=== PATIENT | female | born 1970 | race Caucasian/White ===

== ENCOUNTER 2024-11-30 15:55 | Emergency (ER) | payer OTHER, SELFPAY ==
--- NOTE | ~2024-11-30 | XR_ITS ---
CLINICAL HISTORY: pain 3 view, pelvis and right hip Comparison: None Findings: No acute fracture or dislocation. Mild arthritic changes in the bilateral acetabulofemoral joints. The soft tissues are unremarkable. IMPRESSION: No acute fracture or dislocation. This document has been electronically signed by: Nu Burns DO on 11/30/2024 17:14:40
[2024-11-30 16:11] VITALS: BP 136/65; PULSE 100; RESP 19; TEMP 36.6; O2SAT 97; BMI 29.1
--- NOTE | 2024-11-30 16:12 | ED_ITS ---
HPI - Extremity Problem General Chief complaint: Extremity Injury, Lower Stated complaint: right hip pain Time Seen by Provider: 11/30/24 17:31 Source: patient, RN notes reviewed and old records reviewed Mode of arrival: ambulatory History of Present Illness ED Provider: Myrtle Swain PA-C HPI Narrative: 54-year-old female with a past medical history of arthritis, presenting to the ED complaining of atraumatic right hip pain x few days. Reports pain worse with movement and ambulation with radiation to groin/down RLE. Has been taking Motrin at home without relief. Denies fever, chills, trauma/fall, numbness/ tingling, weakness, incontinence/retention, abdominal pain Related Data Previous Rx's ?Medication ?Instructions ?Recorded acetaminophen 500 mg tablet 500 mg PO Q6H PRN fever or pain 11/30/24 (Tylenol Extra Strength) #14 tabs cyclobenzaprine 5 mg tablet 5 mg PO Q8H PRN pain (scale score 11/30/24 7-10) 5 days #14 tabs lidocaine 5 % topical patch 1 patch topical DAILY PRN pain #30 11/30/24 (Lidoderm) ea naproxen 500 mg tablet 500 mg PO BID PRN pain 10 days #20 11/30/24 tabs Allergies Allergy/AdvReac Type Severity Reaction Status Date / Time propofol Allergy Hives Verified 11/30/24 16:13 Review of Systems Review of Systems: Yes all other systems are reviewed and are negative Constitutional: Constitutional: Reports as per [facility] Past Medical History Attestation statement: The following information was validated with the patient. Source: old records reviewed Social History Social History Advance Directives: No Advance Directives Information Provided: Yes Do you have a plan to hurt others: No Plan Physical Exam Vital Signs: Vital Signs: Last Vital Signs Temp 98 F 11/30/24 17:51 Pulse 100 11/30/24 17:51 Resp 19 11/30/24 17:51 BP 136/65 11/30/24 17:51 Pulse Ox 97 11/30/24 17:51 O2 Del Method Room Air 11/30/24 17:51 BMI result Body Mass Index 29.1 Const: General: cooperative, healthy appearing and no acute distress Orientation/consciousness: patient oriented x3 Limitations: no limitations HEENT: Head: Yes normal to inspection and Yes atraumatic Ears: hearing grossly normal bilaterally General nose exam: Normal external nose present Face and sinus: Yes normal facial exam Eyes: General: appearance normal, both eyes and all related structures EOM: EOMs intact bilaterally Neck: Neck: Yes normal visual inspection and Yes no meningeal signs Resp: Effort & Inspection: normal respiratory effort and no respiratory distress Cardio: Rate: regular rate GI: Inspection: Yes normal to inspection Palpation (GI): Soft to palpation, nontender, no guarding and not rigid Back/Spine/Pelvis: Other: No midline cervical/thoracic/lumbar spinous tenderness/step-off or deformity. + reproducible right buttock MSK tenderness to palpation. No rash or erythema. No ecchymosis. Skin: Rashes: no rashes Wounds: no wounds Neuro: Other: Strength intact throughout. No saddle anesthesia. Sensation intact to light touch. Neurovascular intact distally General: patient oriented x3, gait normal, tone normal, moves all extremities, no meningeal signs and no focal motor deficits Cranial nerves: Yes CN's II-XII intact bilaterally Gait exam (Neuro): Normal gait present Extrem: Other: No appreciable deformity. Pain elicited with hip rotation. Mild tenderness to right groin. No palpable hernia. General: Yes normal to inspection Course Course Course Narrative: 54 yo female with hx of arthritis and prior cortisone shot in R hip she noted at work yesterday severe R hip pain. She denies trauma just states the pain is worse with walking. She has no rash, no fevers, no new change in pattern of exercise but could possibly have been caused by twisting to get out of car. R hip xray ordered suspect MSK pain. this is a RAPID medical screening exam the rest of the history and physical exam is to be done by the main provider. XR hip RT w PEL1V IMPRESSION: No acute fracture or dislocation. Results discussed with patient including worrisome signs and symptoms and strict return precautions, and when to return to the emergency department. They verbalized understanding and feel safe for discharge at this time. Medical Decision Making Medical Decision Making MDM Narrative: 54-year-old female with a past medical history of arthritis, presenting to the ED complaining of atraumatic right hip pain x few days. On exam vital signs stable, NAD, nontoxic appearing, physical exam as noted above. No midline spinous tenderness throughout or red flag symptoms. Ambulating with steady gait with pain. Concern for MSK pain/strain vs spasming vs sciatica. Lower suspicion for fracture, cauda equina, cord compression, hernia, ovarian pathology, appendicitis Plan: X-ray, PCP follow-up Please refer to course for remaining clinical decision making, interpretation of labs/imaging results, and discussions with consultants and/or family members. Differential Diagnosis Differential Diagnoses: The differential diagnosis associated with the presentation includes As above Independent Interpretation I performed an independent interpretation of an: Plain X-Ray Radiology Impression Discussion of test interpretation with radiology: I have reviewed the radiologist's reading. External Record Review External record reviewed: Inpatient record, Office record, Outpatient record, Prior outpatient labs, Prior outpatient radiology, Primary care record and Outside ED record Tests considered The following testing was considered but not selected: As above Prescription Management I considered prescription management with: Pain Medication Chronic Conditions Patient?s care impacted by: Other Attestation Attending Attestation: I was personally present and available for consultation in the ED. I have reviewed everything on the chart that is available and agree with the documentation provided by the CARLOS including discussion about the assessment, treatment plan and discussion. Based on medical record the care appears appropriate. Kev Chong MD [facility] Emergency Medicine Discharge Plan Discharge Clinical Impression: Acute hip pain Patient Disposition: Home, Self-Care Instructions: Hip Pain (ED) Additional Instructions: Your pain is likely musculoskeletal. your x-rays are unremarkable Flexeril is a muscle relaxer, take at night as it makes you drowsy, do not drive, drink alcohol, or operate machinery while taking it Naproxen as an anti-inflammatory / pain medication, take with food Lidoderm patches are numbing patches, apply to painful area In addition take Tylenol at home If symptoms persist or worsen, pain becomes unbearable, you developed urinary retention or incontinence, or weakness return to the ED Prescriptions: New acetaminophen [Tylenol Extra Strength] 500 mg tablet 500 mg PO Q6H PRN (Reason: fever or pain) Qty: 14 0RF lidocaine [Lidoderm] 5 % adhesive patch,medicated 1 patch topical DAILY MDD remove after 12 hours PRN (Reason: pain) Qty: 30 0RF Rx Instructions: leave on most painful area for up to 12 hrs naproxen 500 mg tablet 500 mg PO BID PRN (Reason: pain) 10 Days Qty: 20 0RF cyclobenzaprine 5 mg tablet 5 mg PO Q8H PRN (Reason: pain (scale score 7-10)) 5 Days Qty: 14 0RF Referrals: [facility] [Provider Group] Zonia Perez NP [Primary Care Provider] - Interventions: ED Discharge Assessment Last Done: 11/30/24 17:51 Discharge Date/Time: 11/30/24 17:52 Print Language: Uzbek
[2024-11-30 17:51] VITALS: BP 136/65; PULSE 100; RESP 19; TEMP 36.6; O2SAT 97
== END 2024-11-30 17:52 | disposition home or self-care (01) ==
PROVIDERS: Emergency Provider Emergency Medicine; PCP Nurse Practitioner Family
DX: M25.551 Pain in right hip (principal)
CPT/HCPCS: 73502; 99282; 99283

== ENCOUNTER → 2024-11-30 16:13 | Outpatient (BNV) | payer OTHER, SELFPAY | PROVIDERS: Emergency Provider Emergency Medicine; PCP Nurse Practitioner Family; Visit Provider Radiology Diagnostic Radiology | DX: M25.551 Pain in right hip (principal) | CPT/HCPCS: 73502 ==

== ENCOUNTER 2024-12-22 20:45 | Emergency (ER) | payer OTHER, SELFPAY ==
--- NOTE | ~2024-12-22 | XR_ITS ---
CLINICAL HISTORY: R chest pain 1 view chest x-ray Comparison: None Findings: No consolidation, pneumothorax, or pleural effusion. Opacities of the artifacts accentuated by bilateral implants. Heart size within normal limits for AP technique. No acute fracture. IMPRESSION: No consolidation. This document has been electronically signed by: Jan Hill MD on 12/23/2024 01:40:14
--- NOTE | 2024-12-22 20:47 | ECG_ITS ---
Test Reason : cp Blood Pressure : */* mmHG Vent. Rate : 95 BPM Atrial Rate : 95 BPM P-R Int : 134 ms QRS Dur : 88 ms QT Int : 348 ms P-R-T Axes : 67 64 58 degrees QTcB Int : 437 ms Normal sinus rhythm Possible Left atrial enlargement Nonspecific ST abnormality Abnormal ECG No previous ECGs available Referred By: Christy De Jesus Electronically Signed By: SMITH QUIÑONES
[2024-12-22 21:11] VITALS: BP 126/69; PULSE 100; RESP 16; TEMP 36.6; O2SAT 97; BMI 28.9
[2024-12-22 21:32] LABS: MANUAL DIFF FLAG NO
[2024-12-22 21:33] LABS: Basophils Absolute Auto 0.1 X10*3/uL (0.0-0.2); Basophils Percent Auto 0.6 % (0-2); Eosinophils Absolute Auto 0.8 X10*3/uL (0.0-0.4); Eosinophils Percent Auto 8.1 % (0-4); Hematocrit 35.2 % (37.0-47.0); Hemoglobin 12.1 g/dl (12.0-16.0); Imm Gran Abs Auto 0.03 X10*3/uL (0.00-0.03); Imm Gran Pct Auto 0.3 % (0.0-0.4); Lymphocytes Absolute Auto 3.2 X10*3/uL (1.2-4.9); Lymphocytes Percent Auto 32.3 % (20-40); Mean Corpuscular HGB Conc 34.4 g/dl (31.0-35.0); Mean Corpuscular Volume 87.3 fL (80.0-98.0); Mean Platelet Volume 9.6 fL (9.4-12.3); Monocytes Absolute Auto 0.8 X10*3/uL (0.1-1.2); Monocytes Percent Auto 7.8 % (2-11); Neutrophils Percent Auto 50.9 % (45-73); Platelet Count 272 X10*3/uL (160-400); Red Blood Count 4.03 X10*6/uL (4.20-5.50); Red Cell Distribution Width 13.1 % (11.0-16.0); White Blood Count 9.9 X10*3/uL (4.8-10.8)
[2024-12-22 21:47] LABS: Anion Gap 13 (12-20); Blood Urea Nitrogen 16 mg/dL (9-16); Calcium 8.7 mg/dL (8.4-10.2); Carbon Dioxide 24 mmol/L (22-29); Chloride 107 mmol/L (96-108); Creatinine Clr Calc Pharmacy 81.4; Estimated Glomerular Filt Rate > 60; Glucose Random 111 mg/dL (60-115); Potassium 3.8 mmol/L (3.3-5.1); Sodium 140 mmol/L (135-145)
[2024-12-22 21:57] LABS: Troponin-I High Sensitivity < 2.7 ng/L (<3.5-17.0)
--- NOTE | 2024-12-22 22:37 | ED_ITS ---
HPI - Chest Pain General Chief Complaint: Chest Pain Stated Complaint: Pt states heart is skipping beat / right side pain Time Seen by Provider: 12/22/24 22:17 Source: patient Mode of arrival: ambulatory Limitations: no limitations History of Present Illness ED Provider: Dr. Elizabeth Garay HPI narrative: Patient comes to the emergency room complaining of right-sided chest pressure, palpitations, shortness of breath. Patient states that the pain radiates towards the right arm and right neck. Patient states that the discomfort is intermittent, seems to be worse with movement. Patient states that she has history of double mastectomy, patient was diagnosed with malignant precancerous cells. Related Data Previous Rx's ?Medication ?Instructions ?Recorded acetaminophen 500 mg tablet 500 mg PO Q6H PRN fever or pain 11/30/24 (Tylenol Extra Strength) #14 tabs cyclobenzaprine 5 mg tablet 5 mg PO Q8H PRN pain (scale score 11/30/24 7-10) 5 days #14 tabs lidocaine 5 % topical patch 1 patch topical DAILY PRN pain #30 11/30/24 (Lidoderm) ea naproxen 500 mg tablet 500 mg PO BID PRN pain 10 days #20 11/30/24 tabs cyclobenzaprine 10 mg tablet 10 mg PO TID PRN muscle spasm #10 12/23/24 tabs naproxen 500 mg tablet 500 mg PO BID PRN pain #10 tabs 12/23/24 tramadol 50 mg tablet 50 mg PO BID PRN pain #6 tabs 12/23/24 Allergies Allergy/AdvReac Type Severity Reaction Status Date / Time propofol Allergy Hives Verified 12/22/24 21:15 Review of Systems 2 Review of Systems: Constitutional : No Weight loss, No Fever, No Chills, No Night Sweats, No Fatigue, No Malaise ENT/Mouth : No Hearing loss, No Ear Pain, No Nasal Congestion, No Sinus Pain, No Hoarseness, No sore throat, No Rhinorrhea, No Swallowing Difficulty Eyes: No Eye Pain, No Swelling, No Redness, No Foreign Body, No Discharge, No Vision Changes Cardiovascular : Complaining of right-sided chest pain, shortness of breath with exertion yet has fairly good tolerance took surgeon Respiratory : No Cough, No Sputum, No Wheezing, No Smoke Exposure, No Dyspnea Gastrointestinal : No Nausea, No Vomiting, No Diarrhea, No Constipation, No abdominal Pain, No Hematochezia, No Melena Genitourinary : no irregular bleeding, No Dysuria, No Urinary Frequency, No Hematuria, No Urinary Incontinence, No Urgency, No Flank Pain, No Urinary Flow Changes, No Hesitancy Musculoskeletal : Complaining of right-sided neck pain and shoulder pain, No Myalgias, No Joint Swelling Skin : No Skin Lesions, No rash Neuro : No Weakness, No Numbness, No Paresthesias, No Loss of Consciousness, No Dizziness, No Headache Psych : No Anxiety/Panic, No Depression, No SI/HI/AH/VH, No Social Issues, Heme/Lymph: No Bruising, No Bleeding,No Lymphadenopathy Endocrine : No Polyuria, No Polydipsia, No Temperature Intolerance [facility] Past Medical History Medical History (Updated 12/23/24 @ 02:06 by Elizabeth Garay MD) Hypertension Social History Social History Alcohol intake: current Alcohol intake frequency: holidays/special occasions only Smoked in Last 30 Days: No Use of substances other than those prescribed or required for medical reasons: Yes Substance Use Type: Marijuana Substance Use Frequency: Daily Advance Directives: No Advance Directives Information Provided: Yes Patient : No Physical Exam 2 Vital Signs: Vital Signs: Last Vital Signs Temp 98 F 12/22/24 21:11 Pulse 100 12/22/24 21:11 Resp 16 12/22/24 21:11 BP 126/69 12/22/24 21:11 Pulse Ox 97 12/22/24 21:11 O2 Del Method Room Air 12/22/24 21:11 BMI result Body Mass Index 28.9 Const: Other: Appearance: Alert. Oriented X3. No acute distress. Eyes: Pupils equal, round and reactive to light. ENT: Pharynx normal. Neck: Normal inspection. Neck supple. No lymph nodes noted. No crepitus CVS: Normal heart rate and rhythm. Pulses normal. Normal S1 and S2, reproducible pain to palpation over the right side of the chest. Respiratory: No respiratory distress. Breath sounds normal. No Wheezing. No rales Abdomen: Soft and nontender. No rigidity. No distention. Skin: Skin warm and dry. Normal skin color. Normal skin turgor. Extremities: No lower extremity edema. No Lacerations. No Rash Neuro: Oriented X 3. No motor deficit. No sensory deficit. Moving all extremities. No slurred speech. CN 2 through 12 grossly intact Psych: calm, cooperative, normal affect Course Course Course Narrative: Given patient's past medical history, we will obtain a D-dimer. Discussed with the patient that if the D-dimer is positive, she will likely need a CTA scan, patient agreeable with plan Medical Decision Making Medical Decision Making MDM Narrative: My interpretation of EKG: Normal sinus rhythm, heart rate 95, no ST segment depression or elevation, no T-wave inversion, QTC 437. D-dimer negative Interpretation of labs: No significant abnormality in patient's hematology or chemistry, troponin negative. Chest x-ray negative I discussed with the patient that likely she is experiencing musculoskeletal pain. Wells criteria for pulmonary embolism is 0 Differential Diagnosis Differential Diagnoses: The differential diagnosis associated with the presentation includes (ACS, PE, musculoskeletal pain, costochondritis) Admission/Observation Consideration of admission/observation: Escalation of care including admission/observation considered Lab Data MDM Lab Attestation statement: I reviewed the patient's lab results. 12/22/24 21:24 12/22/24 21:24 Labs: Lab Results 12/22/24 12/23/24 Range/Units 21:24 00:04 WBC 9.9 (4.8-10.8) X10*3/uL RBC 4.03 L (4.20-5.50) X10*6/uL Hgb 12.1 (12.0-16.0) g/dl Hct 35.2 L (37.0-47.0) % MCV 87.3 (80.0-98.0) fL MCH 30.0 (27.0-33.0) pg MCHC 34.4 (31.0-35.0) g/dl RDW 13.1 (11.0-16.0) % Plt Count 272 (160-400) X10*3/uL MPV 9.6 (9.4-12.3) fL Immature Gran % (Auto) 0.3 (0.0-0.4) % Neut % (Auto) 50.9 (45-73) % Lymph % (Auto) 32.3 (20-40) % [place] % (Auto) 7.8 (2-11) % Eos % (Auto) 8.1 H (0-4) % Baso % (Auto) 0.6 (0-2) % Lymph # (Auto) 3.2 (1.2-4.9) X10*3/uL [place] # (Auto) 0.8 (0.1-1.2) X10*3/uL Eos # (Auto) 0.8 H (0.0-0.4) X10*3/uL Baso # (Auto) 0.1 (0.0-0.2) X10*3/uL Abs Immat Gran (auto) 0.03 (0.00-0.03) X10*3/uL Absolute Neuts (auto) 5.0 (2.0-8.3) x10*3/uL Absolute Nucleated RBC 0.000 (0.0-0.012) X10*3/uL Nucleated RBC % (auto) 0.0 (0.0-0.2) /100WBC PT 10.5 L (10.9-12.4) SEC INR 0.9 (0.9-1.1) D-Dimer High Sensitivty < 150 NG/ML Sodium 140 (135-145) mmol/L Potassium 3.8 (3.3-5.1) mmol/L Chloride 107 (96-108) mmol/L Carbon Dioxide 24 (22-29) mmol/L Anion Gap 13 (12-20) BUN 16 (9-16) mg/dL Creatinine 0.74 (0.5-1.4) mg/dL Estim Creat Clear Calc 81.4 Estimated GFR > 60 Random Glucose 111 (60-115) mg/dL Calcium 8.7 (8.4-10.2) mg/dL Troponin I High Sens < 2.7 < 2.7 (<3.5-17.0) ng/L Independent Interpretation I performed an independent interpretation of an: Plain X-Ray Radiology Impression Discussion of test interpretation with radiology: I have reviewed the radiologist's reading. Radiologist Impression: No consolidation, pneumothorax, or pleural effusion. Opacities of the artifacts accentuated by bilateral implants. Heart size within normal limits for AP technique. No acute fracture. IMPRESSION: No consolidation. Critical Care Time Critical Care Time Critical Care Time: Yes Total Critical Care Time: 45 Attestation: I have personally provided critical care time. Time includes review of lab data, radiology results, discussion with consultants, and monitoring for potential decompensation. Intervention performed as documented. Discharge Plan Discharge Clinical Impression: Atypical chest pain Patient Disposition: Home, Self-Care Instructions: Chest Pain (ED), Chest Wall Pain (ED) Additional Instructions: Please follow-up with your primary care physician tomorrow. If you have any worsening or new symptoms, please return to the emergency room or call 911 Prescriptions: New naproxen 500 mg tablet 500 mg PO BID PRN (Reason: pain) Qty: 10 0RF tramadol 50 mg tablet 50 mg PO BID PRN (Reason: pain) Qty: 6 0RF Rx Instructions: Use only if naproxen does not help alleviate the pain cyclobenzaprine 10 mg tablet 10 mg PO TID PRN (Reason: muscle spasm) Qty: 10 0RF No Action acetaminophen [Tylenol Extra Strength] 500 mg tablet 500 mg PO Q6H PRN (Reason: fever or pain) Qty: 14 0RF lidocaine [Lidoderm] 5 % adhesive patch,medicated 1 patch topical DAILY MDD remove after 12 hours PRN (Reason: pain) Qty: 30 0RF Rx Instructions: leave on most painful area for up to 12 hrs naproxen 500 mg tablet 500 mg PO BID PRN (Reason: pain) 10 Days Qty: 20 0RF cyclobenzaprine 5 mg tablet 5 mg PO Q8H PRN (Reason: pain (scale score 7-10)) 5 Days Qty: 14 0RF Print Language: Macedonian
--- NOTE | 2024-12-22 23:48 | PC.NURSE ---
took 500mg tylenol around noon. 1 pill naproxen in morning. ASA 81 just prior to leaving for this ED
[2024-12-23 00:14] LABS: INTERNATIONAL NORM RATIO 0.9 (0.9-1.1); Prothrombin Time 10.5 SEC (10.9-12.4)
[2024-12-23 00:16] LABS: D Dimer High Sensitivity < 150 NG/ML
[2024-12-23 00:30] LABS: Troponin-I High Sensitivity < 2.7 ng/L (<3.5-17.0)
[2024-12-23 02:15] VITALS: BP 118/67; PULSE 86; RESP 12; TEMP 36.6; O2SAT 97
[2024-12-23] MEDS: traMADoL HCL 50 MG TABLET PO (02:17)
[2024-12-23] MEDS: Cyclobenzaprine HCl 5 MG TABLET PO (02:17)
== END 2024-12-23 02:41 | disposition home or self-care (01) ==
PROVIDERS: Emergency Provider Emergency Medicine; PCP Nurse Practitioner Family
DX: R07.89 Other chest pain (principal); R06.02 Shortness of breath; R00.2 Palpitations; M54.2 Cervicalgia; M79.601 Pain in right arm; Z79.899 Other long term (current) drug therapy
CPT/HCPCS: 36415; 71045; 80048; 84484; 85025; 85379; 85610; 93005; 99283; 99285

== ENCOUNTER → 2024-12-22 20:47 | Outpatient (BNV) | payer OTHER, SELFPAY | PROVIDERS: Emergency Provider Emergency Medicine; PCP Nurse Practitioner Family; Visit Provider Internal Medicine | DX: R07.9 Chest pain, unspecified (principal); R94.31 Abnormal electrocardiogram [ECG] [EKG] | CPT/HCPCS: 93010 ==

== ENCOUNTER → 2024-12-23 00:46 | Outpatient (BNV) | payer OTHER, SELFPAY | PROVIDERS: Emergency Provider Emergency Medicine; PCP Nurse Practitioner Family; Visit Provider Radiology Neuroradiology | DX: R07.9 Chest pain, unspecified (principal) | CPT/HCPCS: 71045 ==